=== PATIENT | male | born 1965 | race African-American/Black ===

== ENCOUNTER 2017-03-26 11:25 | Observation (INO) | payer OTHER ==
--- NOTE | 2017-03-26 14:29 | ER Document Report ---
ED General - General Chief Complaint: Abscess Stated Complaint: POSSIBLE ABSCESS Time Seen by Provider: 03/26/17 12:40 Notes: Patient is a 51-year-old male who presents emergency department complaining of 3 days of rectal pain. Patient states that he has a history of a perirectal abscess about 2 years ago. He states that over the past couple of days he has had pain with ambulation and sitting. Otherwise he denies any bright red blood per rectum, fever, chills, pain with defecation. He also denies any straining with bowel movements.. Otherwise healthy male denies any hypertension, hyperlipidemia, diabetes. TRAVEL OUTSIDE OF THE [place] IN LAST 30 DAYS: No - Related Data Allergies/Adverse Reactions: No Known Allergies Allergy (Verified 03/26/17 11:27) Home Medications: Current Home Medications Carvedilol 25 mg PO Q12 03/26/17 [History] Magnesium Oxide [Mag-Ox 400 mg Tablet] 400 mg PO DAILY 03/26/17 [History] Past Medical History - Social History Smoking Status: Never Smoker Frequency of alcohol use: None Family History: Hypertension Patient has suicidal ideation: No Patient has homicidal ideation: No - Past Medical History Cardiac Medical History: Reports: Hx Hypertension Renal/ Medical History: Denies: Hx Peritoneal Dialysis Past Surgical History: Reports: Other - left tracie anal abscess drained 2 years ago here at [facility] both Review of Systems - Review of Systems Constitutional: No symptoms reported Cardiovascular: No symptoms reported Respiratory: No symptoms reported Gastrointestinal: See HPI -: Yes All other systems reviewed and negative Physical Exam - Vital signs Vitals: Temp Pulse Resp BP Pulse Ox 97.5 F 58 L 18 138/79 H 100 03/26/17 11:32 03/26/17 11:32 03/26/17 11:32 03/26/17 11:32 03/26/17 11:32 - Notes Notes: PHYSICAL EXAM GENERAL: Alert, interacts well. NECK: Full range of motion. Supple. Trachea midline. LUNGS: Clear to auscultation bilaterally, no wheezes, rales, or rhonchi. No respiratory distress. HEART: Regular rate and rhythm. No murmurs, gallops, or rubs. ABDOMEN: Soft, nondistended, nontender. No guarding, rebound, or rigidity.. Bowel sounds present in all 4 quadrants. Rectum: Patient with surrounding induration and cellulitis at his anus with internal rectal pain during digital exam. NEUROLOGICAL: Alert and oriented x4. Normal speech. PSYCH: Normal affect, normal mood. SKIN: Warm, dry, normal turgor. No rashes or lesions noted. Course - Re-evaluation Re-evalutation: 03/26/17 13:30 Patient is a 51-year-old male who is hemodynamically stable, no acute distress and afebrile. Presentation is concerning for perirectal abscess. Patient has been accepted to Dr. Root service for OR tomorrow. Patient did eat despite n.p.o. order. Labs to be sent and patient to be admitted to the floor. - Vital Signs Vital signs: Temp Pulse Resp BP Pulse Ox 98.1 F 64 18 118/73 100 03/26/17 17:41 03/26/17 17:41 03/26/17 17:41 03/26/17 17:41 03/26/17 17:41 - Laboratory Result Diagrams: 03/26/17 14:58 03/26/17 16:15 Laboratory results interpreted by me: 03/26/17 14:58 WBC 11.2 H RBC 5.74 H Hgb 12.3 L Hct 37.6 L MCV 66 L MCH 21.4 L RDW 16.0 H Seg Neutrophils % 82.7 H Lymphocytes % 9.5 L Absolute Neutrophils 9.2 H Discharge - Discharge Clinical Impression: Perirectal abscess Condition: Stable Disposition: ADMITTED INPATIENT Admitting Provider: Marcus Root Unit Admitted: Surgical Floor
--- NOTE | 2017-03-26 14:32 | PDOC H&P ---
History of Present Illness Admission Date/PCP: 03/26/17 Patient complains of: RIGHT TITUS-ANAL PAINS History of Present Illness: KATE KNOTT is a 51 year old male C/O right titus-anal pains since 3 days ago. Pains worse 2 days ago and patient feels a litle better today. Denies pains with BM Had titus-anal abscess drained 2 years ago opposite side Past Medical History Cardiac Medical History: Reports: Hypertension Past Surgical History Past Surgical History: Reports: Other - left titus anal abscess drained 2 years ago here at [facility] grafts both Social History Smoking Status: Never Smoker Frequency of Alcohol Use: None Hx Recreational Drug Use: No Hx Prescription Drug Abuse: No - Advance Directive Resuscitation Status: Full Code Family History Family History: Hypertension Parental Family History Reviewed: Yes - Mother age 69. Father Alive and well age 80 Children Family History Reviewed: No Sibling(s) Family History Reviewed.: No Medication/Allergy Home Medications: Lisinopril [Prinivil 10 mg Tablet] 10 mg PO DAILY #30 tablet 03/13/15 Carvedilol 12.5 mg PO BID 03/26/17 Magnesium Oxide [Mag-Ox 400 mg Tablet] 400 mg PO DAILY 03/26/17 Allergies/Adverse Reactions: No Known Allergies Allergy (Verified 03/26/17 11:27) Review of Systems Constitutional: PRESENT: other - no fever/chills Eyes: PRESENT: other - No visual/hearing problems Nose, Mouth, and Throat: PRESENT: other - no sore throat Cardiovascular: PRESENT: other - no chest pains or cough Gastrointestinal: PRESENT: other - pains right titus-anal area Genitourinary: PRESENT: other - no dysuria Musculoskeletal: PRESENT: other - no joint swelling Integumentary: PRESENT: other - no rash Neurological: PRESENT: other - no seizures Endocrine: PRESENT: other - no polydipsia/polyuria Hematologic/Lymphatic: PRESENT: other - no easy bruisability Physical Exam Vital Signs: Temp Pulse Resp BP Pulse Ox 97.5 F 58 L 18 138/79 H 100 03/26/17 11:32 03/26/17 11:32 03/26/17 11:32 03/26/17 11:32 03/26/17 11:32 Intake & Output 03/25/17 03/26/17 03/27/17 06:59 06:59 06:59 Weight 103.5 kg General appearance: PRESENT: mild distress Head exam: PRESENT: atraumatic, normocephalic Eye exam: PRESENT: conjunctiva pink Ear exam: PRESENT: normal external ear exam Mouth exam: PRESENT: neck supple Neck exam: PRESENT: full ROM Respiratory exam: PRESENT: chest wall tenderness, clear to auscultation elijah Cardiovascular exam: PRESENT: RRR Pulses: PRESENT: normal radial pulses Vascular exam: PRESENT: normal capillary refill GI/Abdominal exam: PRESENT: soft - nontender Rectal + right pararactal swelling and tenderness Rectal exam: PRESENT: tenderness - Right perirectal abscess Extremities exam: PRESENT: full ROM, other Musculoskeletal exam: PRESENT: ambulatory Neurological exam: PRESENT: alert, oriented to person, oriented to place, oriented to time, oriented to situation Psychiatric exam: PRESENT: appropriate affect Skin exam: PRESENT: normal color, warm Assessment & Plan - Diagnosis (1) Obesity (BMI 30.0-34.9) Is this a current diagnosis for this admission?: Yes (2) Perirectal abscess Is this a current diagnosis for this admission?: Yes (3) Hypertension Qualifiers: Hypertension type: essential hypertension Qualified Code(s): I10 - Essential (primary) hypertension Is this a current diagnosis for this admission?: Yes - Time Time Spent: 30 to 50 Minutes - Inpatient Certification Based on my medical assessment, after consideration of the patient's comorbidities, presenting symptoms, or acuity I expect that the services needed warrant INPATIENT care.: No - Plan Summary Plan Summary: Just ate. Admit start [facility] right titus-anal abscess in am Hydration
[2017-03-26] MEDS ORDERED: PIPERACILLIN SODIUM/TAZOBACTAM 3.375 GM in NORMAL SALINE 100 ML IV ONE (15:00)
[2017-03-26 15:08] LABS: ABSOLUTE EOSINOPHILS # (AUTO) 0.1 10^3/uL (0.0-0.6); ABSOLUTE LYMPHOCYTES (AUTO) 1.1 10^3/uL (0.5-4.7); ABSOLUTE MONOCYTES (AUTO) 0.8 10^3/uL (0.1-1.4); ABSOLUTE NEUT (AUTO) 9.2 10^3/uL (1.7-8.2); BASOPHILS % (AUTO) 0.4 % (0-2); EOSINOPHILS % (AUTO) 0.5 % (0-6); HEMATOCRIT 37.6 % (37.9-51.0); HEMOGLOBIN 12.3 g/dL (13.5-17.0); HGB HCT DIFFERENCE -0.7; LYMPHOCYTES % (AUTO) 9.5 % (13-45); MEAN CORPUSCULAR HEMOGLOBIN 21.4 pg (27.0-33.4); MEAN CORPUSCULAR HGB CONC 32.6 g/dL (32.0-36.0); MEAN CORPUSCULAR VOLUME 66 fl (80-97); MONOCYTES % (AUTO) 6.9 % (3-13); RED BLOOD COUNT 5.74 10^6/uL (4.35-5.55); SEGMENTED NEUTROPHILS % (AUTO) 82.7 % (42-78); WHITE BLOOD COUNT 11.2 10^3/uL (4.0-10.5)
[2017-03-26] MEDS: NORMAL SALINE 1000 ML 1,000 ML IV PRN (15:10)
[2017-03-26 16:45] LABS: ALANINE AMINOTRANSFERASE 76 U/L (21-72); ALBUMIN 3.7 g/dL (3.5-5.0); ALKALINE PHOSPHATASE 81 U/L (38-126); ANION GAP 10 (5-19); ASPARTATE AMINO TRANSFERASE 30 U/L (17-59); BILIRUBIN,DIRECT 0.1 mg/dL (0.0-0.4); BILIRUBIN,TOTAL 0.4 mg/dL (0.2-1.3); BLOOD UREA NITROGEN 14 mg/dL (7-20); CALCIUM 8.9 mg/dL (8.4-10.2); CARBON DIOXIDE 29 mmol/L (22-30); CHLORIDE 104 mmol/L (98-107); CREATININE RESULT 0.96 mg/dL (0.52-1.25); GLUCOSE 136 mg/dL (75-110); POTASSIUM 4.1 mmol/L (3.6-5.0); SODIUM 143.3 mmol/L (137-145); TOTAL PROTEIN 6.1 g/dL (6.3-8.2)
[2017-03-26 17:33] LABS: APPEARANCE,URINE CLEAR; BILIRUBIN,URINE NEGATIVE (NEGATIVE); GLUCOSE, URINE NEGATIVE (NEGATIVE); KETONES,URINE NEGATIVE (NEGATIVE); LEUKOCYTE ESTERASE,URINE NEGATIVE (NEGATIVE); NITRITE,URINE NEGATIVE (NEGATIVE); PROTEIN,URINE NEGATIVE (NEGATIVE)
[2017-03-26] MEDS: MORPHINE SULFATE 10 MG/ML INJ IV PRN (20:24)
[2017-03-26] MEDS: PIPERACILLIN SODIUM/TAZOBACTAM 3.375 GM in NORMAL SALINE 100 ML IV SCH (21:17)
[2017-03-27] MEDS: PIPERACILLIN SODIUM/TAZOBACTAM 3.375 GM in NORMAL SALINE 100 ML IV SCH ×4 (02:54→21:19)
[2017-03-27 04:39] LABS: ABSOLUTE EOSINOPHILS # (AUTO) 0.1 10^3/uL (0.0-0.6); ABSOLUTE LYMPHOCYTES (AUTO) 1.4 10^3/uL (0.5-4.7); ABSOLUTE MONOCYTES (AUTO) 0.9 10^3/uL (0.1-1.4); ABSOLUTE NEUT (AUTO) 6.4 10^3/uL (1.7-8.2); BASOPHILS % (AUTO) 0.5 % (0-2); EOSINOPHILS % (AUTO) 1.3 % (0-6); HEMATOCRIT 34.5 % (37.9-51.0); HEMOGLOBIN 10.7 g/dL (13.5-17.0); HGB HCT DIFFERENCE -2.4; LYMPHOCYTES % (AUTO) 16.1 % (13-45); MEAN CORPUSCULAR HEMOGLOBIN 20.4 pg (27.0-33.4); MEAN CORPUSCULAR HGB CONC 31.1 g/dL (32.0-36.0); MEAN CORPUSCULAR VOLUME 66 fl (80-97); MONOCYTES % (AUTO) 10.2 % (3-13); RED BLOOD COUNT 5.27 10^6/uL (4.35-5.55); RED CELL DISTRIBUTION WIDTH 15.7 % (11.5-14.0); SEGMENTED NEUTROPHILS % (AUTO) 71.9 % (42-78); WHITE BLOOD COUNT 8.9 10^3/uL (4.0-10.5)
--- NOTE | 2017-03-27 07:31 | EKG REPORT ---
SEVERITY:- ABNORMAL ECG - SINUS RHYTHM INTERCALETED VENTRICULAR PREMATURE COMPLEXES LAD, CONSIDER LEFT ANTERIOR FASCICULAR BLOCK BORDERLINE T ABNORMALITIES, INFERIOR LEADS : Confirmed by: Yosvany Rouse 27-Mar-2017 07:30:28
[2017-03-27] MEDS: NORMAL SALINE 1000 ML 1,000 ML IV PRN (08:59)
--- NOTE | 2017-03-27 10:49 | PDOC PROGRESS REPORT ---
Subjective Progress Note for:: 03/27/17 Subjective:: Perianal pain Reason For Visit: RIGHT TITUS-ANAL ABSCESS,HYPERTENSION Physical Exam Vital Signs: Temp Pulse Resp BP Pulse Ox 98.5 F 52 L 20 109/61 96 03/27/17 07:51 03/27/17 07:51 03/27/17 07:51 03/27/17 07:51 03/27/17 07:51 Intake & Output 03/26/17 03/27/17 03/28/17 06:59 06:59 06:59 Intake Total 2220 Output Total 900 Balance 1320 Weight 100.6 kg General appearance: PRESENT: no acute distress, cooperative Respiratory exam: PRESENT: clear to auscultation elijah Cardiovascular exam: PRESENT: RRR Rectal exam: PRESENT: other - Right perianal tenderness with induration no drainage. Difficult to tell whether he has fluctuance due to the degree of tenderness. Results Laboratory Results: 03/27/17 04:19 03/26/17 16:15 03/26/17 03/26/17 03/27/17 16:15 17:05 04:19 WBC 8.9 RBC 5.27 Hgb 10.7 L Hct 34.5 L MCV 66 L MCH 20.4 L MCHC 31.1 L RDW 15.7 H Plt Count 161 Seg Neutrophils % 71.9 Lymphocytes % 16.1 Monocytes % 10.2 Eosinophils % 1.3 Basophils % 0.5 Absolute Neutrophils 6.4 Absolute Lymphocytes 1.4 Absolute Monocytes 0.9 Absolute Eosinophils 0.1 Absolute Basophils 0.0 Sodium 143.3 Potassium 4.1 Chloride 104 Carbon Dioxide 29 Anion Gap 10 BUN 14 Creatinine 0.96 Est GFR ( Amer) > 60 Est GFR (Non-Af Amer) > 60 Glucose 136 H Calcium 8.9 Total Bilirubin 0.4 AST 30 ALT 76 H Alkaline Phosphatase 81 Total Protein 6.1 L Albumin 3.7 Urine Color YELLOW Urine Appearance CLEAR Urine pH 7.0 Ur Specific Chloride 1.020 Urine Protein NEGATIVE Urine Glucose (UA) NEGATIVE Urine Ketones NEGATIVE Urine Blood NEGATIVE Urine Nitrite NEGATIVE Ur Leukocyte Esterase NEGATIVE Urine WBC (Auto) 1 Urine RBC (Auto) 1 Assessment & Plan - Diagnosis (1) Abscess, perianal Is this a current diagnosis for this admission?: Yes Plan: We will plan to anesthesia with perianal abscess drainage, possible drain placement. If patient has an obvious fistula tract may perform intervention such as seton placement or fistulotomy but most likely I will just do a drainage procedure today. I have had a long discussion with the patient concerning the nature of the surgery and the risk and benefits including risk of bleeding and infection and recurrence and fecal incontinence. He understands that he may require additional surgery down the road if he does have a fistula.
[2017-03-27] MEDS ORDERED: MIDAZOLAM 2 MG/2 ML INJ ONE (14:33)
[2017-03-27] MEDS ORDERED: PROPOFOL INJ 200 MG/20 ML VIAL IV ONE (14:33)
[2017-03-27] MEDS ORDERED: BUPIVACAINE HCL 0.25% /EPINEPHRINE INJ/PF 30 ML SDV ONE (14:58)
[2017-03-27] MEDS ORDERED: PROMETHAZINE HCL INJ 25 MG/1 ML VIAL IV PRN ×2 (15:05)
[2017-03-27] MEDS ORDERED: ONDANSETRON HCL INJ/PF 4 MG/2 ML SDV IV PRN (15:05)
[2017-03-27] MEDS ORDERED: DIPHENHYDRAMINE HCL 50 MG/ML VIAL IV PRN (15:05)
--- NOTE | 2017-03-27 15:23 | Operative Report ---
Operative Report DATE OF SURGERY: 03/27/17 PREOPERATIVE DIAGNOSIS: Perianal abscess POSTOPERATIVE DIAGNOSIS: Left perianal abscess OPERATION: Exam under anesthesia, drainage of left perianal abscess SURGEON: CAITLYN SANZ ANESTHESIA: Spinal TISSUE REMOVED OR ALTERED: Pus sent for Gram stain and culture COMPLICATIONS: None ESTIMATED BLOOD LOSS: Minimal INTRAOPERATIVE FINDINGS: At the left perianal region approximately 3 x 2 cm abscess cavity. No evident fistula opening seen in the anal canal. PROCEDURE: Informed consent was obtained. Patient was brought to the operating room placed on the operating table. Spinal anesthesia was produced and patient was placed in a prone position with his buttocks taped apart. Exam under anesthesia was performed. At the patient's left perianal region there was induration with a sense of central fluctuance. The right side felt completely normal. Hill-Mendoza retractor was placed and I did not see any anal canal abnormalities. Incision was made at the left perianal region entering an approximately 2 x 3 cm abscess cavity with copious amount of pus. The cavity was probed to make sure there was no undrained tracts. The abscess cavity was irrigated. Hemostasis was achieved with electrocautery. Malecot drain was placed into the abscess cavity and it was sutured in place with a chromic suture. Reexamination of the anal canal revealed no evident fistulous tracts. Patient tolerated procedure well with no apparent complications.
[2017-03-27] MEDS: CARVEDILOL 12.5 MG TABLET PO SCH (21:10)
[2017-03-27] MEDS: MORPHINE SULFATE 10 MG/ML INJ IV PRN (21:19)
[2017-03-28] MEDS: PIPERACILLIN SODIUM/TAZOBACTAM 3.375 GM in NORMAL SALINE 100 ML IV SCH ×2 (02:28→08:10)
[2017-03-28] MEDS ORDERED: LISINOPRIL 10 MG TABLET PO SCH (10:00)
[2017-03-28] MEDS ORDERED: MAGNESIUM OXIDE 400 MG TABLET PO SCH (10:00)
[2017-03-28] MEDS: CARVEDILOL 12.5 MG TABLET PO SCH (10:25)
[2017-03-28 14:32] VITALS: BP 118/73
== END 2017-03-28 14:50 | disposition home or self-care (01) ==
LOC: ER 11:25 → EH 15:45 → INTOOBSV 15:45 → 5 17:20
PROVIDERS: ATTEND Surgery
PROC: 0D9Q00Z Drainage of Anus with Drainage Device, Open Approach (ICD-10-PCS; principal; 2017-03-27 14:00)
DX: K61.0 Anal abscess (principal); E66.9 Obesity, unspecified; I10 Essential (primary) hypertension; Z68.32 Body mass index [BMI] 32.0-32.9, adult; Z98.890 Other specified postprocedural states
CPT/HCPCS: 99285; 96365; 36415 ×2; 87070; 87205; 85025 ×2; 87075; 87077; 80053; 81001; 87186; 93005; 93010; 46050; J2250; J3490; J2270 ×2; J7030 ×2; J2704; J2543 ×3; 902